=== PATIENT | female | born 1980 | race Caucasian/White ===

== ENCOUNTER → 2023-08-09 01:08 | Outpatient (CLI) | payer BC, SELFPAY ==
--- NOTE | 2023-08-09 08:30 | DI.MAMMO_ITS ---
Exam(s) MAMMO SCREENING EXAM: MAMMO SCREENING CLINICAL HISTORY: screening,BASELINE, Z12.39 TECHNIQUE: Mammograms were interpreted according to the usual protocol including computer analysis w [employer] CAD system, tomosynthesis and C-view imaging. COMPARISON: No exams were available for comparison. Baseline examination. FINDINGS: The breasts are composed of scattered fibroglandular densities, Breast Density category B. No suspicious masses or suspicious microcalcifications are seen. No skin thickening or abnormal axillary lymph nodes are seen. IMPRESSION: BI-RADS Category 1, Negative mammogram Yearly screening mammography is recommended. Breast Density - Category B, scattered fibroglandular densities. A negative radiographic report should not delay biopsy if a dominant or clinically suspicious mass is present. Up to ten percent of cancers are not identified on mammography. A negative report may reinforce clinical impression. Adenosis and dense breasts may obscure an underlying neoplasm. False positive reports average 6 to 10%. Patient will receive a letter notifying them of these results.
== END ==
PROVIDERS: PCP Nurse Practitioner Family; Visit Provider Nurse Practitioner Family
DX: Z12.31 Encounter for screening mammogram for malignant neoplasm of breast (principal)
CPT/HCPCS: 77063; 77067

== ENCOUNTER 2023-08-09 01:58 | Outpatient (CLI) | payer BC, SELFPAY ==
[2023-08-09 11:53] LABS: Hemoglobin A1C 5.2 % (<5.7)
[2023-08-09 12:15] LABS: ALT 22 U/L (14-59); AST 15 U/L (15-37); Albumin 3.9 g/dL (3.4-5.0); Alkaline Phosphatase 41 U/L (46-116); Anion Gap 6.7 mmol/L (3-11); BUN 15 mg/dL (7-18); Bilirubin, Total 0.3 mg/dL (0.2-1.0); CO2 29.3 mmol/L (21.0-32.0); CREATININE 0.9 mg/dL (0.55-1.02); Calcium 9.7 mg/dL (8.5-10.1); Calculated LDL 101 mg/dL (<100); Chloride 101 mmol/L (98-107); Cholesterol 180 mg/dL (<200); Estimated GFR 81.86 (mL/min/1.73m2); Glucose 129 mg/dL (74-106); HDL Cholesterol 63 mg/dL (40-60); Potassium 4.1 mmol/L (3.5-5.1); Sodium 137 mmol/L (136-145); TSH (W/Ref FT4) 1.83 uIU/mL (0.36-3.74); Total Protein 7.4 g/dL (6.4-8.2); Triglyceride 81 mg/dL (<150)
== END 2023-08-09 01:59 | disposition home or self-care (01) ==
LOC: LBO 01:58
PROVIDERS: PCP Nurse Practitioner Family; Visit Provider Nurse Practitioner Family
DX: Z13.220 Encounter for screening for lipoid disorders; Z13.29 Encounter for screening for other suspected endocrine disorder; Z13.1 Encounter for screening for diabetes mellitus; Z13.228 Encounter for screening for other metabolic disorders
CPT/HCPCS: 36415; 80053; 80061; 83036; 84443

== ENCOUNTER 2024-05-14 12:23 | Outpatient (REF) | payer BC, SELFPAY ==
--- NOTE | 2024-05-14 10:30 | PAPFT_PTH ---
PATIENT: Karina Aranda LOC: [facility] U#:[id number] AGE/SX: 43/F ROOM: RE05/14/[address]: MÓNICA Brown : 1980 BED: DIS: 05/14/2024 SPEC #: [id number] RECD: 05/26/24 12:46 STATUS: ALLYN REQ #: [id number] KIERAN: 05/14/24 10:[address]: Juju Lubin DEPT: [facility] Cytology RECD BY: Meenu Campbell Tissues: 1 - CX/ENDOCX FOR PAP SMEARS Procedures: PAP THIN PREP/[facility] Screening HPV DNA PROBE Comments: [id number] (HPV 16 & 18/45) (CHLAMYDIA/GC)
[2024-05-28 12:47] LABS: Chlamydia Result Negative (Negative); GC Result Negative (Negative)
== END 2024-05-14 12:24 | disposition home or self-care (01) ==
LOC: LBN 12:23
PROVIDERS: PCP Nurse Practitioner Family; Visit Provider Nurse Practitioner Family
DX: Z00.00 Encounter for general adult medical examination without abnormal findings (principal); N93.9 Abnormal uterine and vaginal bleeding, unspecified; F32.9 Major depressive disorder, single episode, unspecified; G43.009 Migraine without aura, not intractable, without status migrainosus; Z71.89 Other specified counseling
CPT/HCPCS: 87491; 87591; 88142; 87624

== ENCOUNTER 2025-05-24 10:32 | Outpatient (CLI) | payer BC, SELFPAY ==
[2025-05-24 12:27] LABS: HCT 41.9 % (36.0-46.0); HGB 14.1 g/dL (11.2-15.7); MCH 28.4 pg (27.0-33.0); MCHC 33.7 % (32.0-36.0); MCV 85 fL (80-95); MPV 11.1 fL (8.0-11.0); Platelet Count 233 10^3/uL (130-400); RBC 4.96 10^6/uL (3.93-5.22); RDW 12.8 % (11.7-14.6); RDW-SD 39.1 fL; WBC 4.70 10^3/uL (4.4-10.8)
[2025-05-24 12:55] LABS: Iron 85 ug/dL (50-170)
[2025-05-24 13:06] LABS: Ferritin 13 ng/mL (8-252)
[2025-05-24 13:23] LABS: ALT 29 U/L (14-59); AST 15 U/L (15-37); Albumin 4.0 g/dL (3.4-5.0); Alkaline Phosphatase 41 U/L (46-116); Anion Gap 8.4 mmol/L (3-11); BUN 13 mg/dL (7-18); Bilirubin, Total 0.4 mg/dL (0.2-1.0); CO2 27.6 mmol/L (21.0-32.0); Calcium 9.2 mg/dL (8.5-10.1); Calculated LDL 119 mg/dL (<100); Chloride 103 mmol/L (98-107); Cholesterol 203 mg/dL (<200); Estimated GFR 113.44 (mL/min/1.73m2); Glucose 93 mg/dL (74-106); HDL Cholesterol 60 mg/dL (>or=50); Potassium 3.8 mmol/L (3.5-5.1); Sodium 139 mmol/L (136-145); Total Protein 7.4 g/dL (6.4-8.2); Triglyceride 120 mg/dL (<150); Vitamin B12 438 pg/mL (193-986)
== END 2025-05-24 10:33 | disposition home or self-care (01) ==
LOC: LOS 10:32
PROVIDERS: PCP Nurse Practitioner Family; Referring Provider Nurse Practitioner Family; Visit Provider Nurse Practitioner Family
DX: N93.9 Abnormal uterine and vaginal bleeding, unspecified (principal); Z00.00 Encounter for general adult medical examination without abnormal findings
CPT/HCPCS: 36415; 80053; 80061; 85027; 82607; 82728; 83540